=== PATIENT | female | born 1950 | race Caucasian/White ===

== ENCOUNTER → 2020-09-18 | Day surgery (SDC) | payer MEDICARE ==
[~2020-09-18] MED LIST: CALTRATE 600 +1 EAC1 PO; FISH OIL CONC1000 MG PO; FLOVENT DISKUS50 MCG INH; HUMALOG MI100 UNITS/ SQ; JANUVIA 100 MG100 MG PO; OMEPRAZOLE20 M1 PO; POTASSIUM GLUC500 MG PO; SERTRALINE HCL50 MG PO; SIMVASTATIN20 MG PO
== END | disposition home or self-care (01) ==
LOC: OR 00:45
DX: K21.00 Gastro-esophageal reflux disease with esophagitis, without bleeding (principal); K44.9 Diaphragmatic hernia without obstruction or gangrene; K31.9 Disease of stomach and duodenum, unspecified; K22.8 Other specified diseases of esophagus; K64.1 Second degree hemorrhoids; K57.30 Diverticulosis of large intestine without perforation or abscess without bleeding; E11.9 Type 2 diabetes mellitus without complications; E78.5 Hyperlipidemia, unspecified; E66.9 Obesity, unspecified; Z68.31 Body mass index [BMI] 31.0-31.9, adult; Z88.0 Allergy status to penicillin; Z88.5 Allergy status to narcotic agent; Z79.84 Long term (current) use of oral hypoglycemic drugs; Z79.899 Other long term (current) drug therapy; Z80.0 Family history of malignant neoplasm of digestive organs; Z20.822 Contact with and (suspected) exposure to COVID-19
CPT/HCPCS: 82962; J2704; J7040

== ENCOUNTER 2021-05-14 16:25 | Emergency (ER) | payer MEDICARE ==
[~2021-05-14] VITALS: Ht 170.2 cm; Wt 86.2 kg
[2021-05-14 17:49] LABS: HEMOGLOBIN 14.2 gm/dl (12.3-15.3); RED BLOOD COUNT 4.06 M/UL (4.00-5.10); WHITE BLOOD COUNT 10.7 K/UL (4.5-11.0)
[2021-05-14] MEDS ORDERED: LEVOFLOXACIN750 MG PO (21:47)
[2021-05-14] MEDS ORDERED: METRONIDAZOLE500 MG PO (21:47)
== END 2021-05-14 22:02 | disposition home or self-care (01) ==
LOC: ER1 16:25
PROVIDERS: Nurse Practitioner
DX: U07.1 COVID-19 (principal); E11.65 Type 2 diabetes mellitus with hyperglycemia; K57.32 Diverticulitis of large intestine without perforation or abscess without bleeding; Z79.4 Long term (current) use of insulin; Z88.0 Allergy status to penicillin
CPT/HCPCS: 80053; 81001; 83605; 83690; 85025; 87040; 99284; Q9967; U0002

== ENCOUNTER → 2022-01-01 | Outpatient (CLI) | payer MEDICARE ==
[~2022-01-01] MED LIST changes: +LEVOFLOXACIN750 MG PO; +METRONIDAZOLE500 MG PO
== END ==
LOC: RAD 07:49
DX: R13.19 Other dysphagia (principal); K44.9 Diaphragmatic hernia without obstruction or gangrene; K22.9 Disease of esophagus, unspecified
CPT/HCPCS: 74221